=== PATIENT | female | born 1945 | race Caucasian/White ===

== ENCOUNTER 2019-10-28 | Emergency (ER) | payer MEDICARE ==
[2019-10-28] MEDS ORDERED: IMITREX25 MG PO (09:27)
[2019-10-28] MEDS ORDERED: PROZAC40 MG PO (09:27)
[2019-10-28 10:45] LABS: HEMOGLOBIN 14.5 g/dl (12.0-16.0); IMMATURE GRANULOCYTES 0.3 % (0.0-5.0); MEAN CELL VOLUME 93.4 fL CALC (80.0-100.0); MEAN CORPUSCULAR HGB 30.1 pG CALC (26.0-32.0); MEAN CORPUSCULAR HGB CONC 32.2 g/L CALC (32.0-36.0); NEUT# 7.25 thou/uL (2.00-7.15); RED BLOOD COUNT 4.82 mill/uL (4.20-5.60); RED CELL DISTRI WIDTH 12.7 % (11.5-15.5)
[2019-10-28 10:47] LABS: URINE BILIRUBIN - DIPSTICK NEGATIVE (NEGATIVE); URINE BLOOD DIPSTICK NEGATIVE (NEGATIVE); URINE COLOR YELLOW; URINE GLUCOSE - DIPSTICK NEGATIVE (NEGATIVE); URINE KETONE NEGATIVE (NEGATIVE); URINE LEUK ESTERASE NEGATIVE (NEGATIVE); URINE NITRITE - DIPSTICK NEGATIVE (Negative); URINE PH 6.5 (4.5-8.0); URINE PROTEIN - DIPSTICK NEGATIVE (NEG-TRACE); URINE SPECIFIC GRAVITY 1.015; URINE UROBILINOGEN - DIPSTICK 0.2 E.U./dL (0.2)
[2019-10-28 10:53] LABS: PROTHROMBIN TIME 10.1 SECONDS (9.0-12.5)
[2019-10-28 10:54] LABS: ALBUMIN 4.6 g/dL (3.2-5.0); ALKALINE PHOSPHATASE 115 u/l (38-126); ANION GAP 14 (6-22 (CALC)); BILIRUBIN, TOTAL 0.4 mg/dL (0.0-1.4); BUN 20 mg/dL (8-23); BUN/CREATININE RATIO 21 (12-20 (CALC)); CARBON DIOXIDE 28 mmol/l (22-30); CHLORIDE 102 mmol/l (95-108); CREATININE 0.9 mg/dL (0.5-1.0); GFR > 60 ML/MIN (>=60 (CALC)); GFR FOR AFR.AMER. > 60 ML/MIN (>=60 (CALC)); POTASSIUM 4.5 mmol/l (3.5-5.1); SGOT/AST 21 u/l (9-36); SODIUM 139 mmol/l (137-146); TOTAL PROTEIN 7.8 g/dL (6.3-8.2)
[2019-10-28] MEDS ORDERED: CIPROFLOXACN500 MG PO (12:18)
[2019-10-28] MEDS ORDERED: METRONIDAZOL500 MG PO (12:18)
[2019-10-28] MEDS ORDERED: MEDDOSEPAK PO (12:18)
== END 2019-10-28 12:24 | disposition home or self-care (01) ==
PROVIDERS: Family Medicine
DX: K50.111 Crohn's disease of large intestine with rectal bleeding (principal)
CPT/HCPCS: Q9967